=== PATIENT | male | born 1995 | race Two or more races ===

== ENCOUNTER 2022-08-07 22:27 | Emergency (ER) | payer MEDICAID, SELFPAY ==
--- NOTE | ~2022-08-07 | XR_ITS ---
EXAMINATION: XR CHEST CLINICAL INFORMATION: Chest pain COMPARISON: None TECHNIQUE: 2 views of the chest were obtained. FINDINGS: The lungs are clear with no focal consolidation. No evidence of pneumothorax, pulmonary edema, or pleural effusions. The cardiomediastinal silhouette is unremarkable. No acute osseous findings. XR/XR chest 2V IMPRESSION: No acute cardiopulmonary findings.
[2022-08-07 22:39] VITALS: BP 129/75; PULSE 70; RESP 16; TEMP 36.7; O2SAT 98; BMI 21.9
--- NOTE | 2022-08-07 22:56 | ECG_ITS ---
Test Reason : chest pain Blood Pressure : / mmHG Vent. Rate : 067 BPM Atrial Rate : 067 BPM P-R Int : 174 ms QRS Dur : 096 ms QT Int : 356 ms P-R-T Axes : 021 -12 050 degrees QTc Int : 376 ms Normal sinus rhythm Incomplete right bundle branch block Borderline ECG No previous ECGs available Referred By: Generic ED Physician Electronically Signed By:STEPHANIE SCHMITT MD
[2022-08-07 23:14] VITALS: BP 142/84; PULSE 69; RESP 17; TEMP 36.4; O2SAT 99
[2022-08-07 23:24] VITALS: PULSE 65
[2022-08-07 23:25] LABS: Basophils Percent Auto 0.5 % (0-2); Eosinophils Absolute Auto 0.1 X10*3/uL (0.0-0.4); Hematocrit 43.1 % (42.0-52.0); Hemoglobin 14.9 g/dl (14.0-18.0); Imm Gran Abs Auto 0.01 X10*3/uL (0.00-0.03); Imm Gran Pct Auto 0.2 % (0.0-0.4); Lymphocytes Absolute Auto 2.3 X10*3/uL (1.2-4.9); Lymphocytes Percent Auto 37.4 % (20-40); MANUAL DIFF FLAG NO; Mean Corpuscular HGB Conc 34.6 g/dl (31.0-36.0); Mean Corpuscular Hemoglobin 30.8 pg (27.0-33.0); Mean Platelet Volume 10.1 fL (9.4-12.4); Monocytes Absolute Auto 0.7 X10*3/uL (0.1-1.2); Monocytes Percent Auto 12.1 % (2-11); Neutrophils Absolute Auto 2.9 x10*3/uL (2.0-8.3); Neutrophils Percent Auto 47.8 % (45-73); Platelet Count 207 X10*3/uL (160-400); Red Blood Count 4.84 X10*6/uL (4.60-5.80); Red Cell Distribution Width 11.9 % (11.0-16.0); White Blood Count 6.1 X10*3/uL (4.8-10.8)
[2022-08-07 23:43] LABS: Anion Gap 12 (12-20); Blood Urea Nitrogen 24 mg/dL (9-16); Calcium 9.8 mg/dL (8.4-10.2); Carbon Dioxide 29 mmol/L (22-29); Chloride 103 mmol/L (96-108); Creatinine Clr Calc Pharmacy 91.7; Estimated Glomerular Filt Rate > 60; Glucose Random 95 mg/dL (60-115); Potassium 4.2 mmol/L (3.3-5.1); Sodium 140 mmol/L (135-145)
[2022-08-07 23:46] LABS: Troponin-I High Sensitivity < 3.5 ng/L (<3.5-35.0)
--- NOTE | 2022-08-08 00:39 | ED_ITS ---
HPI - Chest Pain General Chief Complaint: Chest Pain Stated Complaint: chest pain Time Seen by Provider: 08/07/22 23:35 Source: patient Mode of arrival: ambulatory History of Present Illness HPI narrative: 26-year-old male who states that he had 2 episodes of a sharp chest pain on the left side that last approximately 5 minutes each time and was not associated with fever, chills, cough but states it did get worse with deep breathing and was associated with smoking weed. Patient denies any current symptoms and states he is otherwise been feeling well. Related Data Allergies Allergy/AdvReac Type Severity Reaction Status Date / Time No Known Allergies Allergy Verified 08/07/22 22:39 Review of Systems Review of Systems: Pertinent positives and negatives as stated in HPI [facility] Past Medical History Source: nursing notes reviewed Social History Social History Alcohol intake: current Alcohol intake frequency: a few times a month Alcohol type: beer Smoked in Last 30 Days: Yes Use of substances other than those prescribed or required for medical reasons: Yes Substance Use Type: Marijuana Substance Use Frequency: Weekly Last Used Substance: Days (ago) Any prior treatment program specific to substance use: No Advance Directives: No Physical Exam Vital Signs: Vital Signs: Last Vital Signs Temp 97.6 F 08/07/22 23:14 Pulse 69 08/07/22 23:14 Resp 17 08/07/22 23:14 BP 142/84 H 08/07/22 23:14 Pulse Ox 99 08/07/22 23:14 O2 Del Method 08/07/22 23:14 BMI result Body Mass Index 21.9 VITAL SIGNS: Reviewed. GENERAL: Well developed, well nourished, in no acute distress. HEAD: Normocephalic/atraumatic EYES: PERRLA, EOMI LUNGS: Normal breath sounds. No adventitious sounds or accessory muscle use. SpO2<99>; CHEST WALL: There is no tenderness to palpation CARDIOVASCULAR: Regular rate and rhythm without noted murmurs ABDOMEN: Soft, non-tender, non-distended with bowel sounds. SKIN: Inspection of the skin reveals no rashes NEUROLOGIC: Alert and oriented x 4. Strength and sensation to light touch were grossly intact x 4. Medical Decision Making Medical Decision Making [facility] Narrative: 26-year-old male with history and clinical presentation most consistent with a costochondritis, on review of all investigations there is no evidence to suggest a pericarditis, pneumonia, pneumothorax, cardiac ischemia. Patient was reassured and instructed follow-up with his primary care provider. Differential Diagnosis Please see the discussion above Lab Data Please see the discussion above 08/07/22 23:21 08/07/22 23:21 Labs: Lab Results 08/07/22 08/07/22 08/07/22 Range/Units 23:21 23:21 23:21 WBC 6.1 (4.8-10.8) X10*3/uL RBC 4.84 (4.60-5.80) X10*6/uL Hgb 14.9 (14.0-18.0) g/dl Hct 43.1 (42.0-52.0) % MCV 89.0 (80.0-98.0) fL MCH 30.8 (27.0-33.0) pg MCHC 34.6 (31.0-36.0) g/dl RDW 11.9 (11.0-16.0) % Plt Count 207 (160-400) X10*3/uL MPV 10.1 (9.4-12.4) fL Immature Gran % (Auto) 0.2 (0.0-0.4) % Neut % (Auto) 47.8 (45-73) % Lymph % (Auto) 37.4 (20-40) % [place] % (Auto) 12.1 H (2-11) % Eos % (Auto) 2.0 (0-4) % Baso % (Auto) 0.5 (0-2) % Lymph # (Auto) 2.3 (1.2-4.9) X10*3/uL [place] # (Auto) 0.7 (0.1-1.2) X10*3/uL Eos # (Auto) 0.1 (0.0-0.4) X10*3/uL Baso # (Auto) 0.0 (0.0-0.2) X10*3/uL Abs Immat Gran (auto) 0.01 (0.00-0.03) X10*3/uL Absolute Neuts (auto) 2.9 (2.0-8.3) x10*3/uL Absolute Nucleated RBC 0.000 (0.0-0.012) X10*3/uL Nucleated RBC % (auto) 0.0 (0.0-0.2) /100WBC Sodium 140 (135-145) mmol/L Potassium 4.2 (3.3-5.1) mmol/L Chloride 103 (96-108) mmol/L Carbon Dioxide 29 (22-29) mmol/L Anion Gap 12 (12-20) BUN 24 H (9-16) mg/dL Creatinine 1.29 (0.5-1.4) mg/dL Estim Creat Clear Calc 91.7 Estimated GFR > 60 Random Glucose 95 (60-115) mg/dL Calcium 9.8 (8.4-10.2) mg/dL Troponin I High Sens < 3.5 (<3.5-35.0) ng/L Independent Interpretation I performed an independent interpretation of an: EKG Interpretation: Normal sinus rhythm, HR-67, no STEMI, VA/QRS/QTC is within normal limits. Radiology Impression Radiologist Impression: My interpretation is in agreement with radiology's impression of the imaging study. Discharge Plan Discharge Clinical Impression: Atypical chest pain Patient Disposition: Home, Self-Care Instructions: Chest Wall Pain (ED) Additional Instructions: 1. I recommend [id number] Tylenol/ibuprofen as needed for pain control. 2. Please follow-up with primary care provider. Return to the ER for any worsening symptoms.
== END 2022-08-08 01:55 | disposition home or self-care (01) ==
PROVIDERS: Emergency Provider Student in an Organized Health Care Education/Training Program
DX: R07.89 Other chest pain (principal); F12.90 Cannabis use, unspecified, uncomplicated
CPT/HCPCS: 36415; 71046; 80048; 84484; 85025; 93005; 99284; 99285

== ENCOUNTER → 2023-01-05 13:35 | Outpatient (BNVA) | payer SELFPAY | PROVIDERS: Visit Provider Physician Assistant | DX: Z02.1 Encounter for pre-employment examination (principal) ==

== ENCOUNTER 2024-05-28 14:37 | Emergency (ER) | payer MEDICAID, SELFPAY ==
[2024-05-28 14:44] VITALS: BP 126/78; PULSE 75; RESP 16; TEMP 37; O2SAT 97; BMI 22.2
--- NOTE | 2024-05-28 14:45 | ED_ITS ---
HPI - General Adult General Chief complaint: Skin/Abscess/Foreign Body Stated complaint: Infected Wound R Arm Time Seen by Provider: 05/28/24 16:30 Source: patient and RN notes reviewed Mode of arrival: ambulatory Limitations: no limitations History of Present Illness ED Provider: Susana Forrest PA-C HPI narrative: This is a 28-year-old male, with no known medical problems, who presents [facility] department with complaints of laceration to right arm which occurred this morning. Patient states that he accidentally left a knife facing upwards in the sink any accidentally cut his right forearm. He was seen at [facility] urgent Care however they sent him here to the emergency room for sutures. His last tetanus immunization was last year. Denies any numbness tingling or weakness. Denies any other complaints or concerns at this time. MD complaint: Laceration Onset (ago): day(s) Location: upper extremity Radiation: non-radiation Quality: aching Pain Consistency: constant Relieving factors: none Exacerbating factors: none Associated symptoms: denies other symptoms Treatments prior to arrival: none Related Data Allergies Allergy/AdvReac Type Severity Reaction Status Date / Time No Known Allergies Allergy Verified 05/28/24 14:48 Review of Systems Review of Systems: Yes all other systems are reviewed and are negative [facility] Social History Social History Alcohol intake: current Alcohol intake frequency: a few times a month Alcohol type: beer Substance Use Type: Marijuana Advance Directives: No Advance Directives Information Provided: No Do you have a plan to hurt others: No Plan Physical Exam ED Vital Signs: Vital Signs - 24 hr 05/28/24 14:44 Temperature 98.6 F Pulse Rate 75 Respiratory Rate 16 Blood Pressure 126/78 Pulse Oximetry 97 Oxygen Delivery Method Room Air BMI result Body Mass Index 22.2 Const Other: General: Awake, alert, and oriented X3. No acute distress. HEENT: Normal inspection CVS: Normal heart rate and rhythm. Pulses normal. Respiratory: No respiratory distress Skin: Right arm, mid posterior forearm, there is a 2 cm partial-thickness laceration noted, no active bleeding. No foreign body noted. Warm, dry, no rashes noted to exposed skin. Normal skin color. Normal skin turgor. Capillary refill less than 2 seconds Extremities: Full ROM of all extremities. Able to make fist without difficulty. Strong radial pulse. No numbness tingling or weakness. Neuro: Oriented X 3. No motor deficit. No sensory deficit. Course Course Course Narrative: RME, this is a rapid medical exam performed by Luis Arias please refer to primary provider for complete H&P- 28-year-old male presents for evaluation from [facility] for a laceration in his right forearm. He accidentally cut himself at home with a knife while cutting food. Unknown last tetanus Medications Administered Discontinued Medications Generic Name Dose Route Start Last Admin Trade Name Freq PRN Reason Stop Dose Admin Diphtheria/Tetanus/Acell Pertussis 0.5 ml 05/28/24 14:47 05/28/24 16:27 Diphth,Pertus(Acell),Tet Adult 0.5 Ml Syringe IM 05/28/24 14:48 Not Given .ONCE ONE Lidocaine HCl 5 ml 05/28/24 16:59 05/28/24 17:03 Lidocaine Hcl 1 % Mpf 5 Ml Vial SUBCUT 05/28/24 17:00 5 ml ONCE ONE Administration Procedures Laceration Laceration 1: Site: upper extremity Side (If applicable): right Size (cm): 2 Description: linear Depth: simple, single layer Local Anesthetic: lidocaine 1% Amount of anesthesia used (mL): 2 Pre-repair: wound explored, irrigated extensively and deep structures intact Skin layer closed with: nylon Size (cm): 4-0 Number of sutures: 4 Technique: simple, interrupted Medical Decision Making Medical Decision Making MDM Narrative: This is a 28-year-old male who presents emergency department with complaints of laceration to right forearm which occurred this morning. On arrival, vital signs within normal limits. He is speaking full sentences under no acute distress. Patient states that this was an accidental knife injury. Right forearm was cleansed, and 4 4-0 sutures were placed, see procedure note for detail. Patient given wound care instructions. Given strict return precautions. He has no numbness tingling or weakness, full range of motion of the wrist in chu without difficulty strong radial pulse. No numbness tingling or weakness. Strong capillary refill. Patient has no comorbidities, and this was a clean wound, therefore antibiotics not warranted at this time. Tetanus up-to-date. Dressed with bacitracin, and sterile dressing. Differential Diagnosis Differential Diagnoses: The differential diagnosis associated with the presentation includes Laceration, contusion, puncture wound, abrasion Discharge Plan Discharge Clinical Impression: Laceration of arm Qualifiers: Encounter type: initial encounter Laterality: right Qualified Code(s): S41.111A - Laceration without foreign body of right upper arm, initial encounter Patient Disposition: Home, Self-Care Instructions: Care For Your Stitches (ED), Laceration (ED) Additional Instructions: You were seen in the emergency department after lacerating your right arm. Please have sutures removed in 7 days. You may follow-up with your primary care physician or return here for suture removal. Please keep wound clean and dry. Watch for any signs of infection including but not limited to increased redness, swelling, drainage. You may clean wound with warm soap and water tomorrow. Pat dry. Do not pick at wound. Do not submerge wound. No hot tubs until this wound fully healed. If any new or worsening symptoms occur, please seek emergent care. Ibuprofen and or Tylenol can help with pain as needed. Stand Alone Forms: Work/School Release Print Language: Lithuanian
--- NOTE | 2024-05-28 16:27 | PC.NURSE ---
Tdap not given pt is UTD on tetanus last admin 2022
[2024-05-28] MEDS: Lidocaine HCl 1 % MPF 5 ML VIAL SUBCUT (17:03)
--- NOTE | 2024-05-28 17:20 | PC.NURSE ---
pt presents to exam room from [facility] room. pt has DSD dressing in tact which was applied at [facility] urgent care. Dressing was removed, bleeding controlled, pt has a 1.5cm laceration to anterior forearm. would was irrigated with sterile saline, JASON Forrest to suture.
[2024-05-28] MEDS: Bacitracin Oint 0.9 GM PACKET 1 APPL TOPICAL (17:44)
[2024-05-28 17:49] VITALS: BP 126/78; PULSE 75; RESP 16; TEMP 37; O2SAT 97
== END 2024-05-28 17:53 | disposition home or self-care (01) ==
PROVIDERS: Emergency Provider Emergency Medicine Emergency Medical Services
DX: S51.811A Laceration without foreign body of right forearm, initial encounter (principal); M79.631 Pain in right forearm; W26.0XXA Contact with knife, initial encounter; Y93.89 Activity, other specified; Y92.89 Other specified places as the place of occurrence of the external cause; Y99.8 Other external cause status
CPT/HCPCS: 12041; 99283; 99284; J2003

== ENCOUNTER 2024-10-31 16:38 | Outpatient (REF) | payer MEDICAID, SELFPAY ==
--- OUTSIDE RECORDS SUMMARY | 2024-10-31 16:40 | XMS_ITS | Clinical Summary ---
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 Name Role Phone Leigh Roman RUDDY Primary Care Provider [phone] [phone] No known active allergies Encounters Date Type Department Care Team Description 10/31/2024 1:20 PM EDT Office Visit [facility] [address] [place] [address] [phone] Left lower quadrant abdominal pain (Primary Dx) 10/31/2024 Travel 08/22/2024 Population Health Risk Score [facility] ([facility]) Department [address] [place] [address] Provider, Population Health Generic from Last 3 Months Social History Tobacco Use Types Packs/Day Years Used Date Smoking Tobacco: Never Assessed Sex and Gender Information Value Date Recorded Sex Assigned at Male 05/28/2024 2:15 PM EST Legal Sex Male 2:24 PM EST Gender Identity Male 05/28/2024 2:15 PM EST Sexual Orientation Choose not to disclose 2023 2:15 PM EST Last Filed Vital Signs Vital Sign Reading Time Taken Comments Blood Pressure 136/81 10/31/2024 1:32 PM EDT Pulse 69 10/31/2024 1:32 PM EDT Temperature 36.6 ??C (97.8 ??F) 10/31/2024 1:32 PM ED T Respiratory Rate 18 10/31/2024 1:32 PM EDT Oxygen Saturation 99% 10/31/2024 1:32 PM EDT Inhaled Oxygen Concentration - - Weight 74.4 kg (164 lb) 10/31/2024 1:32 PM EDT Height - - Body Mass Index - - Plan of Treatment Upcoming Encounters Date Type Department Care Team (Late st Contact Info) Description 12/29/2024 2:00 PM EDT Office Visit [facility] [address], [place] [phone] Leigh Roman NP [address] [place] [address] Health Maintenance Due Date Last Done Comments Depression Screening 1997 HIV Screening 1997 SDOH Screening 1997 Disability Screening 1997 Alcohol/Substance Use Screening 2009 Tobacco Screening 2009 Family Planning (PISQ) 2012 Hepatitis C Screening 08/21/2015 Hepatitis B Vaccines (2 of 3 - 19+ 3-dose series) 06/03/2023 05/06/2023 COVID-19 Vaccine (1 - 2023-2 5 season) 2024 Influenza Vaccine (#1) 2024 DTaP/Tdap/Td Vaccines (2 - T d or Tdap) 05/06/2033 05/06/2023 Zoster Vaccines (1 of 2) 08/21/2047 RSV Patients and Pa tients Aged 60 years or older (1 - 1-dose 75+ series) 2072 HIB Vaccines Aged Out No longer eligi ble based on patient's age to complete this topic HPV Vaccines Aged Out No longer eligi ble based on patient's age to complete this topic Hepatitis A Vaccines Aged Out No long er eligible based on patient's age to complete this topic IPV Vaccines Aged Out No longer eligi ble based on patient's age to complete this topic Meningococcal B Vaccine Aged Out No l onger eligible based on patient's age to complete this topic Meningococcal Vaccine Aged Out No tasneem priscilla eligible based on patient's age to complete this topic Pneumococcal Vaccine: Pediat rics (0 to 5 Years) and At-Risk Patients (6 to 49) Years) Aged Out No longer elig ible based on patient's age to complete this topic RSV under 20 months Aged Out No longe r eligible based on patient's age to complete this topic Rotavirus Vaccines Aged Out No longer eligible based on patient's age to complete this topic Procedures Procedure Name Priority Date/Time Associated Diagnosis Comments POCT URINALYSIS DIPSTICK Routine 10/31/2024 2:11 PM EDT Left lower quadrant abdominal pain from Last 3 Months Results * (ABNORMAL) POCT urinalysis dipstick manually resulted (10/31/2024 2:11 PM EDT) Color, UA Yellow Clarity, UA Clear Glucose, UA Negative Bilirubin, UA Negative Ketones, UA Negative Spec Grav, UA 1.005 Blood, UA Positive(A) Negative, None Detected Comment:Trace pH, UA 7.0 Protein, UA Negative Urobilinogen, UA 0.2 Leukocytes, UA Trace Negative, Rare, Trace Nitrite, UA Negative Negative, None Detected Appearance, UA OK Urine 10/31/2024 2:11 PM EDT Leigh Roman NP POINT OF CARE TEST ENTER/EDIT O RDERABLES Final Result from Last 3 Months [facility] Care Teams G[employer] Or Pasture Grower Relationship Specialty Start Date End Date Leigh Roman NP [address] [place] [phone] PCP - General Family Medicine 10/31/24
== END 2024-10-31 16:39 | disposition home or self-care (01) ==
LOC: HO.HHCLNP 16:38
PROVIDERS: Visit Provider Nurse Practitioner
DX: R10.32 Left lower quadrant pain (principal)
CPT/HCPCS: 87086